=== PATIENT | male | born 1970 | race Two or more races ===

== ENCOUNTER 2024-09-14 14:20 | Outpatient (AMB) | payer MEDICAID, SELFPAY ==
--- NOTE | 2024-09-14 15:26 | ORTHONT_ITS ---
Med/Allergies Allergies & Medications Allergies No Known Drug Allergies Allergy (Verified 08/03/24 15:58) Subjective Visit Visit for: follow up visit and x-rays (RESULTS) Immunization / Flu Flu Vaccine in the Last 12 Months: No Flu Vaccine Exclusion Criteria: Refused by Patient and No Exclusion Criteria History of Present Illness Chief complaint: XRAY RESULTS Date of injury / onset of symptoms: 2 YEARS AGO Patient is a pleasant 54-year-old male who presents today for evaluation of his right knee. He reports his right medial pain since falling from horse 2 years ago. He did well with last cortisone injection. He reports that what hurts in the notes that she has pain in his back that radiates all the way down to his toes. He has numbness and tingling in a very numb right foot. He reports that the pain feels like it is burning Personal History Occupation: [employer] PMH: none Pain Pain level (0-10): 4 Pain duration: ON AND OFF Pain location: inside (medial), outside (lateral) and anterior Pain quality: sharp, dull and aching Pain timing: increases with activity Associated signs & symptoms: numbness and stiffness Ambulatory data Ambulatory device: none Treatments Improvement with previous injections: No Improvement with PT: No Improvement with NSAIDS: no Review of Systems Review of Systems: All systems negative unless otherwise noted in HPI. Exam Exam Patient is in no acute distress and is cooperative with the examination today. Breathing is nonlabored. Patient has a normal mood and affect. Bilateral extremities were evaluated and demonstrates sensation intact to light touch. Palpable pedal pulses are present. No significant edema is present. Bilateral hips were examined. The patient has no pain with log roll of the hips. Internal rotation to 30 degrees and external rotation to 30 degrees is painless. Negative FADIR. Left knee was examined today. The left knee is in reasonable alignment. Range of motion from 0-120 degrees. Knee is stable to varus and valgus as well as AP translation with <5mm. Patient has a negative McMurrays. There is no pain with patellofemoral compression and no crepitus noted. The knee is nontender to palpation. The right knee was also examined. The right knee is in [varus] alignment. Range of motion from [0-115] degrees. Knee is stable to varus and valgus as well as AP translation with <5mm. Patient has a [negative] McMurrays. There is [no] pain with patellofemoral compression and [no] crepitus noted. The knee is [tender] to palpation [medially]. MRI demonstrates a large posterior horn of the medial meniscus tear. Assessment and Plan Problem List (1) Medial meniscus tear: Status: Acute Plan: Patient is a 54-year-old male with Right knee pain. He has a history of a meniscal tear and the pain is affecting his quality life and happiness. He has mild to moderate arthritis and a degenerative meniscal tear. She has done well with the cortisone injection. We are obtaining an MRI of her lumbar spine as he has had significant radicular symptoms down his right leg for over 2 years. He reports significant numbness and a burning sensation in S1 distribution. We will obtain an MRI and see how his spine looks Plan We will see him back in 6 to 8 weeks Office Procedures GNS Level of Care Nursing/Assessment Patient Status: Established Patient Nursing Assessment/Reassesment: Medication Reconciliation, Update PMH in EMR and Vital Signs Coordination of Care: Complex Care and Chronic Disease 1-5, Education Complex Pt/Fam, Consent,records obtained, informed consent, 1 Ins Authorization, Lab and Imaging orders, Results/Orders obtained and Staff clarify orders Established Patient Charge Established Patient Point Assignment: 125 Established Patient Point Charge: EP Level 4 (120-155) Past Medical History Past Medical History Have you ever been diagnosed with any of the following: Cardiology Problems Hypertension: Yes Respiratory Problems Smoking: No Smoking Cessation Counseling: No Smoking Exposure: No Tobacco Use: No
== END 2024-09-14 15:42 | disposition home or self-care (01) ==
LOC: HODSRG 14:20
PROVIDERS: Supervising Provider Orthopaedic Surgery Adult Reconstructive Orthopaedic Surgery; Visit Provider Orthopaedic Surgery Adult Reconstructive Orthopaedic Surgery
DX: S83.249D Other tear of medial meniscus, current injury, unspecified knee, subsequent encounter (principal); X58.XXXD Exposure to other specified factors, subsequent encounter; M25.561 Pain in right knee; M19.90 Unspecified osteoarthritis, unspecified site; R20.0 Anesthesia of skin; I10 Essential (primary) hypertension
CPT/HCPCS: 99214; G0463

== ENCOUNTER → 2024-11-20 | Outpatient (CLI) | payer MEDICAID, SELFPAY ==
--- NOTE | 2024-11-20 07:45 | XR_ITS ---
Examination: MRI lumbar spine without contrast Date and time of exam: November 20, 2024 0826 hrs. Indications: Low back pain radiating down the right leg numbness in the right foot beginning 2 years ago Technique: Multiple MRI axial and sagittal sections lumbar spine. Sagittal T2-weighted images, TR 3500, TE 118 T1 weighted transverse sections, TR 688 T8.5, T2-weighted sagittal sections T1 weighted sagittal sections TR 621, TE 30 T2 axial sections, TR 4, 190, TE 84. Findings: Adequate alignment lumbar vertebral bodies on the lateral view Advanced degenerative disc disease L5-S1 Reactive bony endplate change L5-S1 level No spondylolisthesis L5-S1 4 mm left 2 mm right foraminal disc bulges but no ganglionic compression L4-L5 2 mm central lumbar disc bulge L3-L4 no disc protrusion L2-L3 no disc protrusion L1-L2 no disc protrusion Impression: Advanced degenerative disc disease L5-S1 L5-S1 4 mm left 2 mm right foraminal disc bulges but no ganglionic compression L4-L5 2 mm central lumbar disc bulge
== END | disposition home or self-care (01) ==
PROVIDERS: Referring Provider Orthopaedic Surgery Adult Reconstructive Orthopaedic Surgery; Visit Provider Orthopaedic Surgery Adult Reconstructive Orthopaedic Surgery
DX: M51.379 Other intervertebral disc degeneration, lumbosacral region without mention of lumbar back pain or lower extremity pain (principal); M51.369 Other intervertebral disc degeneration, lumbar region without mention of lumbar back pain or lower extremity pain
CPT/HCPCS: 72148